=== PATIENT | female | born 1980 | race Caucasian/White ===

== ENCOUNTER 2023-10-10 08:39 | Emergency (ER) | payer OTHER ==
[~2023-10-10] VITALS: Ht 170.2 cm; Wt 84.5 kg
[2023-10-10] MEDS ORDERED: ERGO500029 PO (08:58)
[2023-10-10] MEDS ORDERED: EQL50TAB2 PO (08:58)
[2023-10-10] MEDS ORDERED: ZOLO25TA PO (08:59)
[2023-10-10] MEDS: INDOMETHACIN 25 MG CAP PO ONE (11:35)
[2023-10-10 11:45] LABS: BASO # 0.1 10^3/uL (0.0-0.2); BASO % 0.6 % (0.0-1.0); EOS # 0.1 10^3/uL (0.0-0.5); EOS % 0.9 % (0.0-3.0); HEMATOCRIT 46.7 % (36.0-47.0); HEMOGLOBIN 15.4 g/dl (12.0-15.5); LYMPH # 4.1 10^3/uL (1.5-5.0); LYMPH % 27.8 % (24.0-44.0); MEAN CORPUSCULAR HEMOGLOBIN 31.8 pg (27.0-33.0); MEAN CORPUSCULAR VOLUME 96.5 fl (80.0-96.0); MONO # 0.8 10^3/uL (0.0-0.8); MONO % 5.3 % (2.0-8.0); NEUTROPHILS # 9.6 10^3/uL (1.5-8.5); NEUTROPHILS % 64.9 % (36.0-66.0); PLATELET COUNT, AUTOMATED 257 10^3/uL (150-450); RED BLOOD COUNT 4.84 10^6/uL (4.00-5.40); WHITE BLOOD COUNT 14.8 10^3/uL (4.0-10.0)
[2023-10-10 12:09] LABS: ERYTHROCYTE SEDIMENTATION RATE 15 mm/hr (0-20)
[2023-10-10 12:13] LABS: BLOOD UREA NITROGEN 9 MG/DL (9-23); CALCIUM LEVEL 9.3 MG/DL (8.5-10.1); CARBON DIOXIDE LEVEL 27 MMOL/L (20-31); CHLORIDE LEVEL 107 MMOL/L (98-107); CREATININE FOR GFR 0.55 MG/DL (0.55-1.30); GLOMERULAR FILTRATION RATE > 60.0 (>58); GLUCOSE, FASTING 102 MG/DL (60-100); POTASSIUM SERUM 4.2 MMOL/L (3.5-5.1); SODIUM LEVEL 141 MMOL/L (136-145)
[2023-10-10 12:23] LABS: URIC ACID 8.9 MG/DL (3.1-7.8)
[2023-10-10] MEDS ORDERED: INDO50CA91 PO (13:18)
[2023-10-10 13:22] VITALS: TEMP 97.4; O2SAT 95
[2023-10-10 13:26] VITALS: BP 160/92
== END 2023-10-10 13:31 | disposition home or self-care (01) ==
LOC: M ED 09:39
DX: M10.071 Idiopathic gout, right ankle and foot (principal); Z88.0 Allergy status to penicillin

== ENCOUNTER 2024-01-30 11:27 | Emergency (ER) | payer OTHER ==
[~2024-01-30] VITALS: Ht 162.6 cm; Wt 96.6 kg
[~2024-01-30 11:27] MED LIST: EQL50TAB2 PO; ERGO500029 PO; INDO50CA91 PO; ZOLO25TA PO
[2024-01-30 14:01] VITALS: BP 148/88; TEMP 97; O2SAT 96
[2024-01-30 15:06] LABS: BASO # 0.1 10^3/uL (0.0-0.2); BASO % 0.7 % (0.0-1.0); EOS # 0.2 10^3/uL (0.0-0.5); EOS % 1.9 % (0.0-3.0); HEMOGLOBIN 15.1 g/dl (12.0-15.5); LYMPH # 3.7 10^3/uL (1.5-5.0); LYMPH % 35.6 % (24.0-44.0); MEAN CORPUSCULAR HEMOGLOBIN 31.8 pg (27.0-33.0); MEAN CORPUSCULAR HGB CONC 34.3 g/dl (32.0-36.5); MEAN CORPUSCULAR VOLUME 92.6 fl (80.0-96.0); MONO # 0.5 10^3/uL (0.0-0.8); MONO % 5.2 % (2.0-8.0); NEUTROPHILS # 5.9 10^3/uL (1.5-8.5); NEUTROPHILS % 56.3 % (36.0-66.0); RED BLOOD COUNT 4.75 10^6/uL (4.00-5.40); WHITE BLOOD COUNT 10.5 10^3/uL (4.0-10.0)
[2024-01-30 15:09] LABS: PLATELET COUNT, AUTOMATED 154 10^3/uL (150-450)
[2024-01-30] MEDS ORDERED: CLEO300C2 PO (15:21)
[2024-01-30] MEDS ORDERED: IBUP-1022 PO (15:21)
== END 2024-01-30 15:29 | disposition home or self-care (01) ==
LOC: M ED 11:27
DX: K04.7 Periapical abscess without sinus (principal); R68.84 Jaw pain; Z88.0 Allergy status to penicillin; Z79.1 Long term (current) use of non-steroidal anti-inflammatories (NSAID); Z79.2 Long term (current) use of antibiotics

== ENCOUNTER 2024-02-01 14:58 | Inpatient (IN) | payer OTHER ==
[~2024-02-01] VITALS: Ht 162.6 cm; Wt 97.2 kg
[~2024-02-01 14:58] MED LIST changes: +CLEO300C2 PO; +IBUP-1022 PO
[2024-02-01] MEDS: dexAMETHasone 20MG/5ML VIAL IV ONE (16:19)
[2024-02-01] MEDS: MOXIFLOXACIN HCL 400 MG in IV 1 EA IV ONE (16:19)
[2024-02-01] MEDS: MORPHINE 4 MG/ML 1ML VIAL IV ONE (16:20)
[2024-02-01] MEDS: NS 1,000 ML IV ONE (16:20)
[2024-02-01 16:23] LABS: BASO # 0.1 10^3/uL (0.0-0.2); BASO % 0.7 % (0.0-1.0); EOS # 0.2 10^3/uL (0.0-0.5); EOS % 2.3 % (0.0-3.0); HEMATOCRIT 41.7 % (36.0-47.0); HEMOGLOBIN 13.8 g/dl (12.0-15.5); LYMPH # 2.7 10^3/uL (1.5-5.0); LYMPH % 29.7 % (24.0-44.0); MEAN CORPUSCULAR HEMOGLOBIN 31.3 pg (27.0-33.0); MEAN CORPUSCULAR HGB CONC 33.1 g/dl (32.0-36.5); MEAN CORPUSCULAR VOLUME 94.6 fl (80.0-96.0); MONO # 0.6 10^3/uL (0.0-0.8); MONO % 6.6 % (2.0-8.0); NEUTROPHILS # 5.5 10^3/uL (1.5-8.5); NEUTROPHILS % 60.4 % (36.0-66.0); PLATELET COUNT, AUTOMATED 228 10^3/uL (150-450); RED BLOOD COUNT 4.41 10^6/uL (4.00-5.40); WHITE BLOOD COUNT 9.1 10^3/uL (4.0-10.0)
[2024-02-01 16:27] LABS: ERYTHROCYTE SEDIMENTATION RATE 23 mm/hr (0-20)
[2024-02-01] MEDS ORDERED: ISOVUE-370 76% 100ML VIAL As Ordered ONE (16:30)
[2024-02-01 16:54] LABS: ALBUMIN 3.7 G/DL (3.2-5.2); ALKALINE PHOSPHATASE 129 U/L (46-116); ALT/SGPT 63 U/L (7.0-40); AST/SGOT 43 U/L (<34); BILIRUBIN,DIRECT 0.3 MG/DL (<0.4); BILIRUBIN,TOTAL 0.7 MG/DL (0.3-1.2); BLOOD UREA NITROGEN 8 MG/DL (9-23); CALCIUM LEVEL 9.2 MG/DL (8.5-10.1); CARBON DIOXIDE LEVEL 25 MMOL/L (20-31); CHLORIDE LEVEL 109 MMOL/L (98-107); CREATININE FOR GFR 0.61 MG/DL (0.55-1.30); GLOMERULAR FILTRATION RATE > 60.0 (>58); GLUCOSE, FASTING 106 MG/DL (60-100); POTASSIUM SERUM 3.8 MMOL/L (3.5-5.1); SODIUM LEVEL 141 MMOL/L (136-145); TOTAL PROTEIN 6.6 G/DL (5.7-8.2)
[2024-02-01] MEDS: HYDROMORPHONE HCL 0.5 MG/ 0.5 ML SYRINGE IV ONE (18:00)
[2024-02-01] MEDS: metroNIDAZOLE 500 MG in IV 1 EA IV ONE (18:18)
[2024-02-01] MEDS ORDERED: ONDANSETRON 4MG 2ML VIAL As Ordered ONE (19:06)
[2024-02-01] MEDS ORDERED: fentaNYL 100 MCG/2 ML INJECTION As Ordered ONE (19:06)
[2024-02-01] MEDS ORDERED: MIDAZOLAM INJ 2MG/2ML VIAL As Ordered ONE (19:06)
[2024-02-01] MEDS ORDERED: propofoL 200 MG/20 ML VIAL As Ordered ONE (19:06)
[2024-02-01] MEDS ORDERED: ROCURONIUM BROMIDE 50MG/5ML VIAL As Ordered ONE (19:06)
[2024-02-01] MEDS ORDERED: LIDOCAINE 2% 100MG/5ML SDV (FOR ANES.) As Ordered ONE (19:06)
[2024-02-01] MEDS ORDERED: ACETAMINOPHEN 1000MG 100ML IV BAG As Ordered ONE (19:08)
[2024-02-01] MEDS ORDERED: ACETAMINOPHEN TAB 650MG DOSE (2X325MG) PO PRN (19:10)
[2024-02-01] MEDS ORDERED: dexmedeTOMIDine (4MCG/ML)200MCG/50ML BTL (PRECEDEX) As Ordered ONE (19:12)
[2024-02-01] MEDS ORDERED: IBUP-1022 PO (19:14)
[2024-02-01] MEDS ORDERED: VITAD400CA PO (19:14)
[2024-02-01] MEDS ORDERED: CLEO300C2 PO (19:14)
[2024-02-01] MEDS ORDERED: OXYMETAZOLINE 0.05% NASAL SPRAY (AFRIN) As Ordered ONE (19:16)
[2024-02-01] MEDS ORDERED: LIDOCAINE 2% W/ EPINEPHRINE 1.7 ML DENTAL INJ As Ordered ONE (19:16)
[2024-02-01] MEDS ORDERED: LIDOCAINE W/EPINEPHRINE 1% 20ML VIAL As Ordered ONE (19:16)
[2024-02-01] MEDS ORDERED: HOME MED LIST COMPLETE! XX SCH (19:20)
[2024-02-01] MEDS ORDERED: metroNIDAZOLE 250 MG in IV 1 EA IV SCH (19:50)
[2024-02-01] MEDS: MEPIVACAINE HCL 3 % 1.7 ML DENTAL CARTRIDGE (CARBOCAINE) As Ordered ONE (20:14)
[2024-02-01] MEDS: PHENYLEPHRINE 0.5% NASAL SPRAY 15 ML As Ordered ONE (20:14)
[2024-02-01] MEDS ORDERED: SUGAMMADEX SODIUM 500 MG/5 ML VIAL (BRIDION) As Ordered ONE (20:22)
[2024-02-01] MEDS ORDERED: KETOROLAC 60MG 2ML VIAL As Ordered ONE (20:30)
[2024-02-01] MEDS ORDERED: BENZONATATE 100MG CAPSULE PO PRN (20:40)
[2024-02-01] MEDS: LR 1,000 ML IV SCH (20:55)
[2024-02-01] MEDS ORDERED: CLINDAMYCIN 150MG CAPSULE PO SCH (21:00)
[2024-02-01] MEDS: DOCUSATE SODIUM 100MG CAPSULE PO SCH (21:00)
[2024-02-01] MEDS: fentaNYL 100 MCG/2 ML INJECTION IV PRN (21:04)
[2024-02-01] MEDS: oxyCODONE 5MG TAB PO PRN (21:27)
[2024-02-01] MEDS: ONDANSETRON 4MG 2ML VIAL IV PRN ×2 (21:28→23:25)
[2024-02-01] MEDS: HYDROMORPHONE HCL 0.5 MG/ 0.5 ML SYRINGE IV PRN ×2 (21:28→23:26)
[2024-02-01 22:00] VITALS: BP 156/77; TEMP 98.1; O2SAT 96
[2024-02-01 22:30] VITALS: BP 149/83; TEMP 98.2; O2SAT 96
[2024-02-01 23:00] VITALS: BP 156/96; TEMP 97.9; O2SAT 95
[2024-02-02] VITALS (10 sets, daily range): BP systolic 121–153; BP diastolic 70–95; TEMP 97.4–98.3; O2SAT 94–97
[2024-02-02] MEDS: MOXIFLOXACIN HCL 400 MG in IV 1 EA IV SCH (01:00)
[2024-02-02] MEDS ORDERED: metroNIDAZOLE 500 MG in IV 1 EA IV SCH (02:00)
[2024-02-02] MEDS: NORCO, ANEXSIA 5/325MG TABLET (HYDROcodone/ACETAMINOPHEN) PO PRN (02:09)
[2024-02-02 06:10] LABS: BASO % 0.2 % (0.0-1.0); HEMATOCRIT 38.7 % (36.0-47.0); HEMOGLOBIN 13.1 g/dl (12.0-15.5); LYMPH # 1.2 10^3/uL (1.5-5.0); LYMPH % 10.3 % (24.0-44.0); MEAN CORPUSCULAR HGB CONC 33.9 g/dl (32.0-36.5); MEAN CORPUSCULAR VOLUME 94.6 fl (80.0-96.0); MONO # 0.2 10^3/uL (0.0-0.8); MONO % 1.5 % (2.0-8.0); NEUTROPHILS % 87.5 % (36.0-66.0); PLATELET COUNT, AUTOMATED 225 10^3/uL (150-450); RED BLOOD COUNT 4.09 10^6/uL (4.00-5.40); WHITE BLOOD COUNT 11.4 10^3/uL (4.0-10.0)
[2024-02-02 06:41] LABS: ALBUMIN 3.3 G/DL (3.2-5.2); ALKALINE PHOSPHATASE 113 U/L (46-116); ALT/SGPT 58 U/L (7.0-40); AST/SGOT 64 U/L (<34); BILIRUBIN,TOTAL 0.5 MG/DL (0.3-1.2); BLOOD UREA NITROGEN 9 MG/DL (9-23); CALCIUM LEVEL 8.2 MG/DL (8.5-10.1); CARBON DIOXIDE LEVEL 21 MMOL/L (20-31); CHLORIDE LEVEL 109 MMOL/L (98-107); CREATININE FOR GFR 0.53 MG/DL (0.55-1.30); GLOMERULAR FILTRATION RATE > 60.0 (>58); GLUCOSE, FASTING 168 MG/DL (60-100); SODIUM LEVEL 138 MMOL/L (136-145); TOTAL PROTEIN 6.3 G/DL (5.7-8.2)
[2024-02-02] MEDS: PERCOCET 5MG/325MG TAB PO PRN ×2 (08:37→22:07)
[2024-02-02] MEDS ORDERED: DEXTROSE 50% 50ML SYRINGE IV PRN (08:45)
[2024-02-02] MEDS ORDERED: GLUCOSE 4 GM CHEW PO PRN (08:45)
[2024-02-02] MEDS ORDERED: GLUCAGON INJ 1MG VIAL SC PRN (08:45)
[2024-02-02] MEDS: INSULIN LISPRO (NovoLOG) PER UNIT SC SCH (09:22)
[2024-02-02] MEDS: KETOROLAC 30 MG/ML 1ML VIAL IV ONE (09:22)
[2024-02-02 09:47] LABS: BLOOD UREA NITROGEN 9 MG/DL (9-23); CALCIUM LEVEL 8.7 MG/DL (8.5-10.1); CARBON DIOXIDE LEVEL 23 MMOL/L (20-31); CHLORIDE LEVEL 108 MMOL/L (98-107); CREATININE FOR GFR 0.55 MG/DL (0.55-1.30); GLOMERULAR FILTRATION RATE > 60.0 (>58); GLUCOSE, FASTING 144 MG/DL (60-100); SODIUM LEVEL 139 MMOL/L (136-145)
[2024-02-02 12:33] LABS: HEMOGLOBIN A1c 5.2 % (4.0-6.0)
[2024-02-02 15:06] LABS: INR 1.09; PROTHROMBIN TIME 13.8 SECONDS (12.5-14.5)
[2024-02-03] VITALS (7 sets, daily range): BP systolic 129–172; BP diastolic 79–100; TEMP 97.5–98.1; O2SAT 97–98
[2024-02-03 05:56] LABS: HEMATOCRIT 35.4 % (36.0-47.0); HEMOGLOBIN 11.9 g/dl (12.0-15.5); MEAN CORPUSCULAR HGB CONC 33.6 g/dl (32.0-36.5); MEAN CORPUSCULAR VOLUME 95.2 fl (80.0-96.0); PLATELET COUNT, AUTOMATED 236 10^3/uL (150-450); RED BLOOD COUNT 3.72 10^6/uL (4.00-5.40); WHITE BLOOD COUNT 14.7 10^3/uL (4.0-10.0)
[2024-02-03 06:25] LABS: ALBUMIN 3.2 G/DL (3.2-5.2); ALKALINE PHOSPHATASE 97 U/L (46-116); ALT/SGPT 31 U/L (7.0-40); AST/SGOT 22 U/L (<34); BILIRUBIN,TOTAL 0.4 MG/DL (0.3-1.2); BLOOD UREA NITROGEN 14 MG/DL (9-23); CARBON DIOXIDE LEVEL 25 MMOL/L (20-31); CHLORIDE LEVEL 108 MMOL/L (98-107); CREATININE FOR GFR 0.59 MG/DL (0.55-1.30); GLOMERULAR FILTRATION RATE > 60.0 (>58); GLUCOSE, FASTING 117 MG/DL (60-100); POTASSIUM SERUM 3.7 MMOL/L (3.5-5.1); SODIUM LEVEL 139 MMOL/L (136-145); TOTAL PROTEIN 5.7 G/DL (5.7-8.2)
[2024-02-03] MEDS: ENOXAPARIN 40MG/0.4ML SYRINGE (J1650 PER 10MG) SC SCH (08:09)
[2024-02-03] MEDS: KETOROLAC 30 MG/ML 1ML VIAL IV ONE (11:56)
[2024-02-03] MEDS: cefTRIAXone SOD 2 GM in D5W MINI-BAG PLUS 50 ML IV SCH (11:56)
[2024-02-03] MEDS: MORPHINE 2 MG/ML 1ML VIAL IV PRN ×2 (12:53→21:07)
[2024-02-03] MEDS: metroNIDAZOLE 500 MG in IV 1 EA IV SCH (13:05)
[2024-02-03] MEDS: KETOROLAC 30 MG/ML 1ML VIAL IV SCH (21:08)
[2024-02-04 05:25] VITALS: BP 154/83; TEMP 98.2; O2SAT 98
[2024-02-04 05:59] LABS: HEMATOCRIT 37.5 % (36.0-47.0); HEMOGLOBIN 12.4 g/dl (12.0-15.5); MEAN CORPUSCULAR HEMOGLOBIN 31.2 pg (27.0-33.0); MEAN CORPUSCULAR HGB CONC 33.1 g/dl (32.0-36.5); MEAN CORPUSCULAR VOLUME 94.2 fl (80.0-96.0); PLATELET COUNT, AUTOMATED 197 10^3/uL (150-450); RED BLOOD COUNT 3.98 10^6/uL (4.00-5.40); WHITE BLOOD COUNT 9.1 10^3/uL (4.0-10.0)
[2024-02-04 06:10] LABS: ALBUMIN 3.2 G/DL (3.2-5.2); ALKALINE PHOSPHATASE 93 U/L (46-116); ALT/SGPT 74 U/L (7.0-40); AST/SGOT 71 U/L (<34); BILIRUBIN,TOTAL 0.4 MG/DL (0.3-1.2); BLOOD UREA NITROGEN 11 MG/DL (9-23); CALCIUM LEVEL 8.4 MG/DL (8.5-10.1); CARBON DIOXIDE LEVEL 26 MMOL/L (20-31); CHLORIDE LEVEL 107 MMOL/L (98-107); CREATININE FOR GFR 0.57 MG/DL (0.55-1.30); GLOMERULAR FILTRATION RATE > 60.0 (>58); GLUCOSE, FASTING 94 MG/DL (60-100); POTASSIUM SERUM 3.6 MMOL/L (3.5-5.1); SODIUM LEVEL 140 MMOL/L (136-145); TOTAL PROTEIN 5.6 G/DL (5.7-8.2)
[2024-02-04] MEDS: amLODIPine 5 MG TAB PO SCH (09:38)
[2024-02-04 14:00] VITALS: BP 149/86; TEMP 98.1; O2SAT 96
[2024-02-04 20:40] VITALS: BP 150/85; TEMP 98.1; O2SAT 98
[2024-02-05 05:15] VITALS: BP 130/83; TEMP 97.3; O2SAT 98
[2024-02-05 06:00] LABS: HEMATOCRIT 38.9 % (36.0-47.0); HEMOGLOBIN 13.6 g/dl (12.0-15.5); MEAN CORPUSCULAR HEMOGLOBIN 31.6 pg (27.0-33.0); MEAN CORPUSCULAR VOLUME 90.5 fl (80.0-96.0); PLATELET COUNT, AUTOMATED 244 10^3/uL (150-450)
[2024-02-05 06:32] LABS: ALBUMIN 3.6 G/DL (3.2-5.2); ALKALINE PHOSPHATASE 114 U/L (46-116); ALT/SGPT 91 U/L (7.0-40); AST/SGOT 47 U/L (<34); BILIRUBIN,TOTAL 0.5 MG/DL (0.3-1.2); BLOOD UREA NITROGEN 9 MG/DL (9-23); CALCIUM LEVEL 8.9 MG/DL (8.5-10.1); CARBON DIOXIDE LEVEL 26 MMOL/L (20-31); CHLORIDE LEVEL 105 MMOL/L (98-107); CREATININE FOR GFR 0.48 MG/DL (0.55-1.30); GLOMERULAR FILTRATION RATE > 60.0 (>58); GLUCOSE, FASTING 123 MG/DL (60-100); POTASSIUM SERUM 4.1 MMOL/L (3.5-5.1); SODIUM LEVEL 139 MMOL/L (136-145); TOTAL PROTEIN 6.3 G/DL (5.7-8.2)
[2024-02-05 09:22] VITALS: BP 151/91
[2024-02-05 12:00] VITALS: BP 157/85; TEMP 98.2; O2SAT 98
[2024-02-05] MEDS ORDERED: ACET1TAB55 PO (15:42)
[2024-02-05] MEDS ORDERED: TRAM50TA2 PO (15:42)
[2024-02-05] MEDS ORDERED: AMLO1TAB24 PO (15:42)
[2024-02-05] MEDS ORDERED: COLA100C5 PO (15:42)
[2024-02-05] MEDS ORDERED: PROB250C PO (16:53)
[2024-02-05] MEDS ORDERED: METR-265 PO (16:53)
[2024-02-05] MEDS ORDERED: CEFD1CAP9 PO (16:53)
[2024-02-05] MEDS ORDERED: INSULIN LISPRO (NovoLOG) PER UNIT SC SCH (21:00)
== END 2024-02-05 17:35 | disposition home or self-care (01) | DRG 159 ==
LOC: M ED 14:58 → M ED INP 19:09 → M MSPAV 21:57
PROVIDERS: ADMIT Preventive Medicine Undersea and Hyperbaric Medicine; ATTEND Internal Medicine
PROC: 0C9 Mouth and Throat, Drainage (ICD-10-PCS; 2024-02-01)
PROC: 0CTX0Z1 Resection of Lower Tooth, Multiple, Open Approach (ICD-10-PCS; principal; 2024-02-01 19:30)
DX: K12.2 Cellulitis and abscess of mouth (principal); K02.9 Dental caries, unspecified; N63.20 Unspecified lump in the left breast, unspecified quadrant; K04.7 Periapical abscess without sinus; R73.9 Hyperglycemia, unspecified; E04.0 Nontoxic diffuse goiter; F17.210 Nicotine dependence, cigarettes, uncomplicated; Z87.442 Personal history of urinary calculi; Z86.718 Personal history of other venous thrombosis and embolism; Z90.49 Acquired absence of other specified parts of digestive tract; Z90.710 Acquired absence of both cervix and uterus; Z88.0 Allergy status to penicillin

== ENCOUNTER → 2024-04-05 | Outpatient (CLI) | payer OTHER ==
[~2024-04-05] MED LIST changes: +ACET1TAB55 PO; +AMLO1TAB24 PO; +CEFD1CAP9 PO; +COLA100C5 PO; +METR-265 PO; +PROB250C PO; +TRAM50TA2 PO; +VITAD400CA PO
[2024-04-05 13:08] LABS: ALBUMIN 4.1 G/DL (3.2-5.2); ALKALINE PHOSPHATASE 137 U/L (46-116); ALT/SGPT 82 U/L (7.0-40); AST/SGOT 54 U/L (<34); BILIRUBIN,TOTAL 0.5 MG/DL (0.3-1.2); BLOOD UREA NITROGEN 9 MG/DL (9-23); CALCIUM LEVEL 9.5 MG/DL (8.5-10.1); CARBON DIOXIDE LEVEL 26 MMOL/L (20-31); CHLORIDE LEVEL 106 MMOL/L (98-107); CREATININE FOR GFR 0.52 MG/DL (0.55-1.30); GLOMERULAR FILTRATION RATE > 60.0 (>58); GLUCOSE, FASTING 116 MG/DL (60-100); POTASSIUM SERUM 3.7 MMOL/L (3.5-5.1); PTH INTACT 56.6 PG/ML (18.5-88.0); SODIUM LEVEL 139 MMOL/L (136-145); TOTAL PROTEIN 6.9 G/DL (5.7-8.2)
[2024-04-05 13:09] LABS: THYROID STIMULATING HORMONE 1.455 uIU/ML (0.55-4.78)
== END ==
LOC: M PLALAB 09:08
PROVIDERS: ATTEND Family Medicine
DX: Z80.3 Family history of malignant neoplasm of breast (principal)

== ENCOUNTER → 2024-04-10 | Outpatient (CLI) | payer OTHER | LOC: M WHC 11:04 | PROVIDERS: ATTEND Family Medicine | DX: N63.21 Unspecified lump in the left breast, upper outer quadrant (principal) | CPT/HCPCS: 76642; 77066; G0279 ==

== ENCOUNTER → 2024-04-25 | Outpatient (CLI) | payer OTHER ==
[2024-04-25 11:26] VITALS: TEMP 98.4
[2024-04-25 12:25] VITALS: BP 180/110; O2SAT 100
== END ==
LOC: M WHCPRO 10:52
PROVIDERS: ATTEND Family Medicine
DX: R92.8 Other abnormal and inconclusive findings on diagnostic imaging of breast (principal); N60.02 Solitary cyst of left breast; N63.21 Unspecified lump in the left breast, upper outer quadrant; D24.2 Benign neoplasm of left breast

== ENCOUNTER 2024-06-14 09:05 | Day surgery (SDC) | payer OTHER ==
[~2024-06-14] VITALS: Ht 162.6 cm; Wt 93.4 kg
[~2024-06-14 09:05] MED LIST changes: +NS 250 ML IV ONE
[2024-06-14] MEDS ORDERED: propofoL 200 MG/20 ML VIAL As Ordered ONE (09:42)
[2024-06-14 10:49] VITALS: TEMP 98.6
[2024-06-14 11:05] VITALS: BP 144/82; O2SAT 95
== END 2024-06-14 11:20 | disposition home or self-care (01) ==
LOC: M OPP 09:05
PROVIDERS: ATTEND Surgery
DX: Z12.11 Encounter for screening for malignant neoplasm of colon (principal); K64.0 First degree hemorrhoids; Z80.0 Family history of malignant neoplasm of digestive organs; Z90.89 Acquired absence of other organs; Z88.0 Allergy status to penicillin; Z90.710 Acquired absence of both cervix and uterus; F17.210 Nicotine dependence, cigarettes, uncomplicated

== ENCOUNTER → 2024-07-18 | Outpatient (CLI) | payer OTHER ==
[~2024-07-18] MED LIST changes: -NS 250 ML IV ONE; +PROHANCE 279.3MG/ML 15ML VIAL ONE; +PROHANCE 279.3MG/ML 5ML VIAL ONE
== END ==
LOC: M PLAIMG 10:30
PROVIDERS: ATTEND Surgery
DX: Z91.89 Other specified personal risk factors, not elsewhere classified (principal); Z12.39 Encounter for other screening for malignant neoplasm of breast; Z80.3 Family history of malignant neoplasm of breast; D36.9 Benign neoplasm, unspecified site

== ENCOUNTER 2025-01-02 04:45 | Observation (INO) | payer OTHER ==
[~2025-01-02] VITALS: Ht 162.6 cm; Wt 59.8 kg
[~2025-01-02 04:45] MED LIST changes: -PROHANCE 279.3MG/ML 15ML VIAL ONE; -PROHANCE 279.3MG/ML 5ML VIAL ONE
[2025-01-02 05:31] LABS: BASO # 0.1 10^3/uL (0.0-0.2); BASO % 0.9 % (0.0-1.0); EOS # 0.1 10^3/uL (0.0-0.5); EOS % 0.8 % (0.0-3.0); HEMATOCRIT 48.7 % (36.0-47.0); HEMOGLOBIN 16.6 g/dl (12.0-15.5); LYMPH # 3.3 10^3/uL (1.5-5.0); LYMPH % 24.7 % (24.0-44.0); MEAN CORPUSCULAR HEMOGLOBIN 31.4 pg (27.0-33.0); MEAN CORPUSCULAR HGB CONC 34.1 g/dl (32.0-36.5); MEAN CORPUSCULAR VOLUME 92.2 fl (80.0-96.0); MONO # 0.8 10^3/uL (0.0-0.8); MONO % 6.2 % (2.0-8.0); NEUTROPHILS # 8.9 10^3/uL (1.5-8.5); NEUTROPHILS % 66.9 % (36.0-66.0); PLATELET COUNT, AUTOMATED 308 10^3/uL (150-450); RED BLOOD COUNT 5.28 10^6/uL (4.00-5.40); WHITE BLOOD COUNT 13.3 10^3/uL (4.0-10.0)
[2025-01-02] MEDS: METOCLOPRAMIDE INJ 10MG/2ML VIAL IV ONE ×2 (05:40→22:06)
[2025-01-02] MEDS: KETOROLAC 30 MG/ML 1ML VIAL IV ONE ×2 (05:40→06:23)
[2025-01-02 05:42] LABS: KETONE, URINE AUTO RFX NEGATIVE (NEGATIVE); MUCUS, URINE RFX SMALL (NEGATIVE); NITRITE, URINE AUTO RFX NEGATIVE (NEGATIVE); RBC, URINE AUTO RFX TNTC /HPF (0-3); SQUAM EPITHELIAL CELL UR AURFX 1 /HPF (0-6)
[2025-01-02 06:02] LABS: LIPASE 28 U/L (12-53)
[2025-01-02 06:05] LABS: ALBUMIN 4.1 G/DL (3.2-5.2); ALKALINE PHOSPHATASE 120 U/L (35-104); ALT/SGPT 38 U/L (7.0-40); AST/SGOT 20 U/L (<34); BILIRUBIN,DIRECT 0.1 MG/DL (<0.4); BILIRUBIN,TOTAL 0.4 MG/DL (0.3-1.2); BLOOD UREA NITROGEN 11 MG/DL (9-23); CALCIUM LEVEL 9.5 MG/DL (8.5-10.1); CARBON DIOXIDE LEVEL 26 MMOL/L (20-31); CHLORIDE LEVEL 106 MMOL/L (98-107); CREATININE FOR GFR 0.67 MG/DL (0.55-1.30); GLOMERULAR FILTRATION RATE > 90.0 (>58); GLUCOSE, FASTING 154 MG/DL (60-100); POTASSIUM SERUM 3.7 MMOL/L (3.5-5.1); SODIUM LEVEL 143 MMOL/L (136-145); TOTAL PROTEIN 7.2 G/DL (5.7-8.2)
[2025-01-02 06:10] LABS: LEUKOCYTE ESTERASE UR AUTO RFX 1+ (NEGATIVE); WBC, URINE AUTO RFX 13 /HPF (0-3)
[2025-01-02 06:18] LABS: HCG, SERUM QUALITATIVE NEGATIVE (NEGATIVE)
[2025-01-02] MEDS: MORPHINE 2 MG/ML 1ML VIAL IV ONE (06:23)
[2025-01-02] MEDS: NS (Normal Saline) 0.9% 1,000 ML IV ONE (06:26)
[2025-01-02] MEDS: PHENAZOPYRIDINE 100 MG TAB PO ONE (06:51)
[2025-01-02] MEDS: TAMSULOSIN 0.4 MG CAP PO ONE (06:51)
[2025-01-02] MEDS ORDERED: HOME MED LIST COMPLETE! XX SCH (07:10)
[2025-01-02] MEDS: MORPHINE 2 MG/ML 1ML VIAL IV PRN (07:29)
[2025-01-02] MEDS: LR 1,000 ML IV SCH (09:30)
[2025-01-02 10:10] VITALS: BP 144/87; TEMP 97.9; O2SAT 96
[2025-01-02] MEDS: MORPHINE 4 MG/ML 1ML VIAL IV PRN ×2 (11:20→16:08)
[2025-01-02 12:15] VITALS: BP 127/88; TEMP 98.1; O2SAT 95
[2025-01-02] MEDS: KETOROLAC 30 MG/ML 1ML VIAL IV PRN (13:13)
[2025-01-02 16:14] VITALS: BP 142/79; TEMP 98.1; O2SAT 96
[2025-01-02 19:26] VITALS: BP 142/81; TEMP 98.4; O2SAT 96
[2025-01-02 21:50] VITALS: BP 142/79; TEMP 98.2; O2SAT 96
[2025-01-02 23:54] VITALS: BP 143/77; TEMP 98.1; O2SAT 96
[2025-01-03] VITALS (11 sets, daily range): BP systolic 134–157; BP diastolic 77–97; TEMP 97.5–99.3; O2SAT 93–98
[2025-01-03 05:52] LABS: HEMATOCRIT 38.2 % (36.0-47.0); MEAN CORPUSCULAR HEMOGLOBIN 31.1 pg (27.0-33.0); MEAN CORPUSCULAR VOLUME 94.3 fl (80.0-96.0); PLATELET COUNT, AUTOMATED 212 10^3/uL (150-450); RED BLOOD COUNT 4.05 10^6/uL (4.00-5.40); WHITE BLOOD COUNT 9.4 10^3/uL (4.0-10.0)
[2025-01-03 05:55] LABS: HEMOGLOBIN 12.6 g/dl (12.0-15.5)
[2025-01-03 06:14] LABS: BLOOD UREA NITROGEN 7 MG/DL (9-23); CALCIUM LEVEL 8.6 MG/DL (8.5-10.1); CARBON DIOXIDE LEVEL 28 MMOL/L (20-31); CHLORIDE LEVEL 108 MMOL/L (98-107); CREATININE FOR GFR 0.53 MG/DL (0.55-1.30); GLOMERULAR FILTRATION RATE > 90.0 (>58); GLUCOSE, FASTING 98 MG/DL (60-100); POTASSIUM SERUM 3.4 MMOL/L (3.5-5.1); SODIUM LEVEL 144 MMOL/L (136-145)
[2025-01-03] MEDS: TAMSULOSIN 0.4 MG CAP PO SCH (08:53)
[2025-01-03] MEDS: ENOXAPARIN 40MG/0.4ML SYRINGE (J1650 PER 10MG) SC SCH (08:53)
[2025-01-03] MEDS: PROMETHAZINE 25MG/ML 1ML VIAL IV PRN (11:44)
[2025-01-03] MEDS ORDERED: propofoL 200 MG/20 ML VIAL As Ordered ONE (15:35)
[2025-01-03] MEDS ORDERED: LIDOCAINE 2% 100MG/5ML SDV (FOR ANES.) As Ordered ONE (15:35)
[2025-01-03] MEDS ORDERED: fentaNYL 100 MCG/2 ML INJECTION As Ordered ONE (15:47)
[2025-01-03] MEDS ORDERED: MIDAZOLAM INJ 2MG/2ML VIAL As Ordered ONE (16:14)
[2025-01-03] MEDS: SCOPOLAMINE 1MG TRANSDERMAL PATCH As Ordered ONE (16:20)
[2025-01-03] MEDS: ceFAZolin SOD 2 GM in DEXTROSE 5% (D5W) ADV/MINI-BAG 50 ML IV ONE (16:33)
[2025-01-03] MEDS: ISOVUE-300 61% 100ML VIAL As Ordered ONE (16:50)
[2025-01-03] MEDS ORDERED: KETOROLAC 30 MG/ML 1ML VIAL As Ordered ONE (17:02)
[2025-01-03] MEDS: ceFAZolin SODIUM 2 GM VIAL As Ordered ONE (17:12)
[2025-01-03] MEDS: SCOPOLAMINE 1MG TRANSDERMAL PATCH TOP ONE (17:13)
[2025-01-03] MEDS ORDERED: oxyCODONE 5MG TAB PO PRN (17:35)
[2025-01-03] MEDS ORDERED: METOCLOPRAMIDE INJ 10MG/2ML VIAL IV PRN (17:35)
[2025-01-03] MEDS ORDERED: fentaNYL 100 MCG/2 ML INJECTION IV PRN (17:35)
[2025-01-03] MEDS: METOCLOPRAMIDE INJ 10MG/2ML VIAL IV STA (17:36)
[2025-01-03] MEDS: HYDROMORPHONE HCL 0.5 MG/ 0.5 ML SYRINGE IV PRN (17:40)
[2025-01-03] MEDS: ACETAMINOPHEN *IV* 1,000 MG in IV 1 EA IV STA (17:44)
[2025-01-04] MEDS: ACETAMINOPHEN 500 MG TAB PO PRN (01:55)
[2025-01-04 03:10] VITALS: BP 156/87; TEMP 98.2; O2SAT 95
[2025-01-04 06:30] VITALS: O2SAT 96
[2025-01-04 07:10] VITALS: BP 162/98; TEMP 98.6; O2SAT 95
[2025-01-04 07:57] VITALS: BP 160/93
[2025-01-04 08:01] LABS: BLOOD UREA NITROGEN 7 MG/DL (9-23); CALCIUM LEVEL 9.6 MG/DL (8.5-10.1); CARBON DIOXIDE LEVEL 26 MMOL/L (20-31); CHLORIDE LEVEL 107 MMOL/L (98-107); CREATININE FOR GFR 0.45 MG/DL (0.55-1.30); GLOMERULAR FILTRATION RATE > 90.0 (>58); GLUCOSE, FASTING 129 MG/DL (60-100); POTASSIUM SERUM 4.1 MMOL/L (3.5-5.1); SODIUM LEVEL 143 MMOL/L (136-145)
[2025-01-04] MEDS ORDERED: KETO-204 PO (09:40)
[2025-01-04] MEDS ORDERED: PROM50TA4 PO (09:41)
[2025-01-04] MEDS ORDERED: BLOOKIT XX (09:57)
[2025-01-04 10:18] VITALS: BP 133/79
[2025-01-04] MEDS: **hydrALAZINE HCL** 25 MG TAB PO ONE (10:18)
[2025-01-04 11:01] VITALS: BP 140/80; TEMP 97.8; O2SAT 95
[2025-01-04] MEDS ORDERED: HYDR25TA87 PO (11:27)
[2025-01-04] MEDS ORDERED: **hydrALAZINE HCL** 25 MG TAB PO SCH (21:00)
== END 2025-01-04 14:00 | disposition home or self-care (01) ==
LOC: M ED 04:45 → M ED INP 04:46 → M MSPAV 10:02
PROVIDERS: ADMIT Family Medicine; ATTEND Student in an Organized Health Care Education/Training Program
DX: N13.1 Hydronephrosis with ureteral stricture, not elsewhere classified (principal); Z87.442 Personal history of urinary calculi; E87.6 Hypokalemia; D72.829 Elevated white blood cell count, unspecified; I10 Essential (primary) hypertension; R53.83 Other fatigue; R11.0 Nausea; N64.4 Mastodynia; Z90.12 Acquired absence of left breast and nipple; Z90.79 Acquired absence of other genital organ(s); Z85.3 Personal history of malignant neoplasm of breast; Z98.891 History of uterine scar from previous surgery; Z90.89 Acquired absence of other organs; Z83.3 Family history of diabetes mellitus; Z82.49 Family history of ischemic heart disease and other diseases of the circulatory system; Z80.41 Family history of malignant neoplasm of ovary; Z80.0 Family history of malignant neoplasm of digestive organs; Z80.3 Family history of malignant neoplasm of breast; G47.9 Sleep disorder, unspecified; F17.200 Nicotine dependence, unspecified, uncomplicated; Z88.0 Allergy status to penicillin; Z88.8 Allergy status to other drugs, medicaments and biological substances; Z79.899 Other long term (current) drug therapy
CPT/HCPCS: 36415; 52356; 73630; 74176; 74420; 80048; 80076; 81001; 82365; 83690; 84703; 85025; 85027; 87086; 93041; 96361; 96372; 96374; 96375; 96376; 99285; C1769; C2617; J0131; J0690; J1100; J1171; J1650; J1885; J2250; J2550; J2765; J3010; Q9967

== ENCOUNTER → 2025-01-17 | Outpatient (REF) | payer OTHER ==
[~2025-01-17] MED LIST changes: +BLOOKIT XX; +HYDR25TA87 PO; +KETO-204 PO; +PROM50TA4 PO
[2025-01-17 13:38] LABS: APPEARANCE, URINE CLOUDY (CLEAR); BACTERIA, URINE AUTO NEGATIVE (NEGATIVE); BILIRUBIN, URINE AUTO NEGATIVE (NEGATIVE); BLOOD, URINE BLOOD 3+ (NEGATIVE); COLOR, URINE YELLOW (YELLOW); GLUCOSE, URINE (UA) AUTO NEGATIVE (NEGATIVE); KETONE, URINE AUTO NEGATIVE (NEGATIVE); LEUKOCYTE ESTERASE, URINE AUTO 1+ (NEGATIVE); MUCUS, URINE MODERATE (NEGATIVE); NITRITE, URINE AUTO NEGATIVE (NEGATIVE); PROTEIN, URINE AUTO 3+ mg/dL (NEGATIVE); RBC, URINE AUTO TNTC /HPF (0-3); SPECIFIC GRAVITY URINE AUTO 1.018 (1.002-1.035); SQUAMOUS EPITHELIAL CELL UR AU 1 /HPF (0-6); UROBILINOGEN, URINE AUTO 0.2 mg/dL (0.0-2.0); WBC, URINE AUTO 57 /HPF (0-3); YEAST LIKE CELL URINE AUTO LARGE
== END ==
LOC: M SFHCPLAZ 13:09
PROVIDERS: ATTEND Family Medicine
DX: R30.0 Dysuria (principal)